=== PATIENT | female | born 1975 | race Caucasian/White ===

== ENCOUNTER 2016-05-18 15:46 | Emergency (ER) | payer SELFPAY ==
[2016-05-18] MEDS ORDERED: OXYCODONE/ACETAMINOPHEN 5/325 MG TABLET ONE (17:13)
== END 2016-05-18 17:29 | disposition home or self-care (01) ==
LOC: ED 15:46
DX: M19.032 Primary osteoarthritis, left wrist (principal); F17.210 Nicotine dependence, cigarettes, uncomplicated
CPT/HCPCS: 99283 ×2; 29125; A9270

== ENCOUNTER 2016-05-22 10:49 | Emergency (ER) | payer SELFPAY | END 2016-05-22 11:41 | disposition home or self-care (01) | LOC: ED 10:49 | DX: M25.531 Pain in right wrist (principal); G89.29 Other chronic pain; F17.210 Nicotine dependence, cigarettes, uncomplicated ==

== ENCOUNTER 2016-06-19 12:39 | Emergency (ER) | payer SELFPAY ==
[2016-06-19] MEDS ORDERED: IOPAMIDOL 300 (61%) 100 ML VIAL IV ONE (12:40)
[2016-06-19] MEDS ORDERED: LACTATED RINGERS 1,000 ML ONE (13:15)
[2016-06-19] MEDS ORDERED: ONDANSETRON 4 MG/2ML 2 ML VIAL ONE ×2 (13:15→13:58)
[2016-06-19] MEDS ORDERED: MORPHINE SULFATE 2 MG/ML SYRINGE ONE ×2 (13:25→13:58)
[2016-06-19 13:30] LABS: ABSOLUTE NEUTROPHIL COUNT 4.9 K/mm3 (1.8-7.7); BASO % 0.1 % (0.2-1.0); EOS % 0.6 % (0.9-2.9); HEMATOCRIT 44.5 % (37.0-47.0); HEMOGLOBIN 15.2 gm/l (12.0-16.0); IMM NEUT% 0.3 % (0-1); LYMPH # 1.5 (1.0-4.8); LYMPH % 21.6 % (15-45); MEAN CELL VOLUME 85.7 fl (81.0-99.0); MEAN CORPUSCULAR HEMOGLOBIN 29.3 pg (27.0-31.0); MEAN CORPUSCULAR HGB CONC 34.2 g/dl (33.0-37.0); MEAN PLATELET VOLUME 8.9 fl (7.4-10.4); MONO # 0.3 (0.0-0.8); MONO % 4.3 % (4-12); NEUT % 73.1 % (43-75); PLATELET COUNT 407 K/mm3 (130-400); RED CELL DISTRIBUTION WIDTH 12.9 % (11.5-14.5)
[2016-06-19 13:42] LABS: ALB/GLOB RATIO 1.2 (>1.0); ALBUMIN 4.2 gm/dL (3.5-5.7); CALCIUM 9.7 mg/dL (8.6-10.3); MAGNESIUM 1.9 mg/dL (1.9-2.7)
[2016-06-19] MEDS ORDERED: MORPHINE SULFATE 4 MG/ML SYRINGE ONE ×3 (14:29→17:14)
--- NOTE | 2016-06-19 16:06 | CT ---
ABD/PELVIS W/ CON COMPARISON: None. HISTORY: Multiple quadrant pain for one day. Technique: No oral contrast. Intravenous injection 100 mL Isovue 300. Using a [employer] Aquilion [address] scanner, images were obtained from the diaphragm to the floor the pelvis. An automated dose reduction technique was used to minimize patient radiation dose. Dose information: CTDIvol (mGy): 18.80 DLP(mGycm): 970.70 FINDINGS: Lung bases: Normal. Inferior mediastinum and heart: Normal. Liver: Normal. Gallbladder: Removed. Bile ducts: Normal. Pancreas: Normal. Spleen: Normal. Adrenal glands: Normal. Kidneys: Normal. Ureters: Normal Urinary bladder: Normal. Uterus and adnexa: Normal. Blood vessels: Normal Lymph nodes: Normal Stomach: Normal Duodenum: Normal Small intestine: Normal Appendix: Normal Colon: Normal Abdominal wall and supporting musculature: Normal Bones: Normal IMPRESSION: 1. No acute finding. 2. Cholecystectomy. Report was sent to the emergency department electronic medical record system 06/19/2016 at 16:07
[2016-06-19] MEDS ORDERED: LORAZEPAM 2 MG/ML 1ML SDV ONE (16:24)
== END 2016-06-19 17:48 | disposition home or self-care (01) ==
LOC: ED 12:39
DX: R10.9 Unspecified abdominal pain (principal); R11.2 Nausea with vomiting, unspecified; F17.210 Nicotine dependence, cigarettes, uncomplicated
CPT/HCPCS: 83605; 85025; 80053; 83735; 74177; 96375 ×2; 96376 ×4; 99284 ×2; 96374; 96361; J2060; J2270 ×5; J2405 ×2; J7120; Q9967